=== PATIENT | female | born 1970 | race Caucasian/White ===

== ENCOUNTER 2021-06-26 11:59 | Outpatient (CLI) | payer OTHER, SELFPAY ==
--- NOTE | ~2021-06-26 | US_ITS ---
EXAMINATION: US venous doppler LE RT DATE: 06/26/2021 12:44 INDICATION: Right lower limb pain TECHNIQUE: Hutson scale images without and with compression and Doppler images of the right lower extre mity veins were obtained. COMPARISON: None FINDINGS: The right common femoral vein, profunda femoral vein, femoral vein, popliteal vein, peronea l trunk, posterior tibial veins, and greater saphenous vein are patent. IMPRESSION: 1. Patent right lower extremity veins. No evidence of deep venous thrombosis. Reviewed, dictated and finalized at location B.
== END 2021-06-26 12:00 | disposition home or self-care (01) ==
LOC: ANHIMG 12:05
PROVIDERS: PCP Family Medicine; Visit Provider Nurse Practitioner Family
DX: M79.89 Other specified soft tissue disorders (principal); M79.661 Pain in right lower leg
CPT/HCPCS: 93971

== ENCOUNTER 2023-05-09 11:20 | Outpatient (CLI) | payer BC, SELFPAY ==
--- NOTE | 2023-05-09 11:29 | ECG_ITS ---
Measurements Intervals [place] Rate: 78 P: 69 FL: 105 QRS: 0 QRSD: 79 T: 6 QT: 347 QTc: 397 Interpretive Statements SINUS RHYTHM WITH SHORT FL INTERVAL LOW QRS VOLTAGE IN PRECORDIAL LEADS BASELINE ARTIFACT- I, II, III, AVR, AVL, AVF, V1-V6 BORDERLINE ECG COMPARED TO ECG 04/24/2019 14:06:29 NO SIGNIFICANT CHANGES Electronically Signed On 05-09-2023 12:09:56 CDT by Randal Keane D.O.
== END 2023-05-09 11:21 | disposition home or self-care (01) ==
LOC: ANHSURGERY 11:24
PROVIDERS: PCP Family Medicine; Visit Provider Obstetrics & Gynecology
DX: N94.6 Dysmenorrhea, unspecified (principal); I10 Essential (primary) hypertension; Z01.818 Encounter for other preprocedural examination; R94.31 Abnormal electrocardiogram [ECG] [EKG]
CPT/HCPCS: 36415; 86850; 86900; 86901; 93005

== ENCOUNTER 2023-05-11 00:32 | Day surgery (SDC) | payer BC, SELFPAY ==
[2023-05-05 14:09] VITALS: BMI 40.4
--- NOTE | 2023-05-05 14:19 | PC.NURSE ---
Addendum entered by Latonya Carranza RN 05/05/23 14:31: WE WILL BE NEEDING A URINE SAMPLE THE MORNING OF SURGERY WHEN YOU ARRIVE, PLEASE REFRAIN FROM GOING TO THE RESTROOM BEFORE BEING BROUGHT TO YOUR PREOPERATIVE ROOM. Original Note: Report to the Outpatient Waiting Room, entrance under the green pavilion located off [facility], at time _1200_ on date _05/11/23__. Planned Procedure Time: __1400_. Time changes happen often and if your time is changed the preop area will call you the afternoon before. - You and your visitor will be asked to self-screen and do not enter if you have any COVID symptoms. - A mask is optional within the hospital at this time. Patients may have clear liquids (water, carbonated beverages, clear teas, apple juice) until 3 hours prior to surgery with a maximum of 20 ounces. - No food from midnight until time of surgery - Infants may have breast milk until 4 hours before surgery, formula 6 hours prior to surgery. - Children will be allowed to drink immediately following surgery. If applicable, please bring a bottle or sippy cup to assist with drinking. Juice, water, soda, and popsicles are readily available. For infants on formula, please bring formula the day of surgery. Pacifiers are allowed. Take the following medications with a SIP of water the morning of surgery: ___AMLODIPINE, FLUOXETINE__ ALBUTEROL INHALER IF NEEDED DO NOT STOP ANY OF YOUR OTHER PRESCRIPTION MEDICATIONS PRIOR TO SURGERY ?EXCEPT THE FOLLOWING Medications to discontinue per physician NONE Date to take last dose Please no make-up, nail nicaraguan, hairspray, perfume, deodorant, or body powder the day of surgery. No jewelry (including any body piercings) or valuables the day of surgery, leave them at home. Please take a shower or bath the night before, or the morning of, surgery with an antibacterial soap. Wear comfortable, loose fitting clothing. Children are encouraged to wear pajamas. - Jewelry must be removed prior to entering the operating room. Rings and piercings that are not removed may be cut off. - The hospital will not accept responsibility for valuables. - Please leave all valuables, including medications, at home the day of surgery. If you are going home after surgery, a licensed pick up driver must drive you home. - NO public transportation without another adult if you receive anesthesia. - We recommend that an adult stay with you for 24 hours following discharge. - We also recommend that you do not drive, make important decision, drink alcoholic beverages, or take any drugs that were not prescribed by your health care provider for at least 24 hours after your discharge time. For Pediatric surgeries, we recommend two adults accompany the child home. Follow any additional instructions given to you from your surgeon. If you or anyone in your household have experienced Covid symptoms in the past week, please notify your surgeon or the nurse liaison at the phone number below for possible testing. Telephone instructions given to _QUINTIN_and asked if any additional questions and then verbalized understanding. Patient advised to call surgeon office or pre surgery nurse liaison [phone] if any additional questions.
[2023-05-11] VITALS (9 sets, daily range): BP systolic 123–152; BP diastolic 65–87; PULSE 87–100; RESP 12–20; TEMP 36.2–37.1; O2SAT 92–100
--- NOTE | 2023-05-11 11:58 | PM.IMHP ---
H&P: HPI History of Present Illness Date/Time: 05/11/23 11:58 Chief Complaint: Heavy bleeding. Narrative: 53 y/o with heavy, painful bleeding episodes. She is known to have a fibroid uterus. Endometrial biopsy benign. She desires definitive management with hysterectomy. Review of Systems Review of Systems: All systems reviewed & are unremarkable except as noted in HPI and below PMFSH Past Medical History Medical History Asthma Essential hypertension Palpitations Wellness examination Social History Social History Smoking status: Never smoker Second hand tobacco smoke exposure: No Alcohol intake: current Drinks per week: 2 Alcohol use details: socially Substance use: never Substance use type: does not use Living arrangements: with family Occupation/Education: occupation Gender identity (if verbalized by the patient): Female Sexual Orientation (if Verbalized by the Patient): Straight or Heterosexual Meds Home Medications and Allergies Home Medications Medication Instructions Recorded Confirmed Type fluticasone propionate 50 2 spray intranasal DAILY PRN SINUS 06/09/20 05/05/23 History mcg/actuation nasal ALLERGY spray,suspension (Flonase Allergy Relief) albuterol sulfate 90 mcg/actuation See Rx Instructions .Route 06/18/22 05/05/23 Rx aerosol inhaler .COMPLEX #8.5 grams losartan 100 mg tablet 100 mg PO DAILY #90 tabs 11/22/22 05/05/23 Rx montelukast 10 mg tablet 10 mg PO QHS #90 tabs 01/20/23 05/05/23 Rx (Singulair) amlodipine 5 mg tablet 5 mg PO DAILY #90 tabs 04/04/23 05/05/23 Rx fluoxetine 20 mg capsule 20 mg PO DAILY #90 caps 04/04/23 05/05/23 Rx Allergies Allergy/AdvReac Type Severity Reaction Status Date / Time No Known Allergies Allergy Unverified 05/05/23 14:07 Exam Const: Orientation/consciousness: patient oriented x3 Other: Well-developed, well-nourished female in no acute distress. Neck: Thyroid: thyroid normal Lymphatic: no lymphadenopathy noted (in neck, axilla or inguinal nodes) Resp: Effort & Inspection: normal respiratory effort Auscultation: clear to auscultation bilaterally Cardio: Rate: regular rate Rhythm: regular rhythm Heart sounds: S1 normal heart sound present and S2 normal heart sound present GI: Other: ABD: Soft, nontender, nondistended. No guarding or rebound tenderness. No hepatosplenomegaly. : General: Yes no CVA tenderness Other: External genitalia: normal female hair distribution, without lesion. Urethral meatus: no lesion, non prolapsed. Bladder: no mass, nontender Vagina: well-estrogenized, without lesion or discharge. No cystocele or rectocele. Cervix: no lesion or discharge. Uterus: small, anteverted, freely mobile, nontender Adnexa: no mass or tenderness. Anus/perineum: no lesions, nontender Back/Spine/Pelvis: Back: no CVA tenderness Skin: General skin exam: normal color and no rashes or lesions noted Neuro: General: patient oriented x3 Extrem: Other: Extremities: nontender with no edema Psych: Mental Status: mental status grossly normal Affect: normal affect Assessment and Plan Assessment and plan (1) Menometrorrhagia: Code(s): N92.1 - Excessive and frequent menstruation with irregular cycle Status: Acute Assessment and Plan: A: Menometrorrhagia with pelvic pain. P: We have reviewed medical as well as surgical management options. She desires definitive management with hysterectomy. We plan total vaginal hysterectomy with bilateral salpingectomies, possible salpingo-oophorectomies. She understands risks of surgery to include risks of anesthesia, risks of pain, infection, bleeding, blood products, thromboembolic phenomena and damage to adjacent structures such as bowel, bladder, ureters, blood vessels and nerves. She understands all t
[2023-05-11] MEDS: ACETAMINOPHEN 500 MG TABLET 1000 MG PO (12:32)
--- NOTE | 2023-05-11 12:41 | WPDHPUPDATE1 ---
History and Physical Update Update Date/Time: 05/11/23 12:41 History and Physical has been reviewed, including an updated exam of the patient. There are NO changes in the patient's condition. Risks, benefits, and alternatives have been discussed and questions answered. Patient agrees to proceed with procedure.
[2023-05-11] MEDS: LACTATED RINGERS 1,000 ML 30 ML IV CONT ×2 (12:45→15:24)
[2023-05-11] MEDS: KETOROLAC 15 MG/ML VIAL (*BKC) IV PUSH (12:50)
--- NOTE | 2023-05-11 13:11 | P.PNAN_ITS ---
Anes - Initial Pre Proc Eval Procedure: Operation Date: 05/11/23 14:00 Proposed Procedures p Total Vaginal Hysterectomy with Bilateral Salpingo-oophorectomy - Juan Berrios MD Date/Time: 05/11/23 13:11 Surgeon: Juan Berrios MD Pre Op Diagnosis: Pelvic Pain, Dyspareunia,Dysmenorhea,Excess Bleed Patient Data Age: 53 Gender: F Height: 1.7 m Weight: 117 kg Allergies Allergy/AdvReac Type Severity Reaction Status Date / Time No Known Allergies Allergy Unverified 05/11/23 12:30 Home Medications Medication Instructions Recorded Confirmed Type fluticasone propionate 50 2 spray intranasal DAILY PRN SINUS 06/09/20 05/11/23 History mcg/actuation nasal ALLERGY spray,suspension (Flonase Allergy Relief) albuterol sulfate 90 mcg/actuation See Rx Instructions .Route 06/18/22 05/11/23 Rx aerosol inhaler .COMPLEX #8.5 grams losartan 100 mg tablet 100 mg PO DAILY #90 tabs 11/22/22 05/11/23 Rx montelukast 10 mg tablet 10 mg PO QHS #90 tabs 01/20/23 05/11/23 Rx (Singulair) amlodipine 5 mg tablet 5 mg PO DAILY #90 tabs 04/04/23 05/11/23 Rx fluoxetine 20 mg capsule 20 mg PO DAILY #90 caps 04/04/23 05/11/23 Rx Patient hx anesthesia problems: none Family hx anesthesia problems: none Results Review: All pre-operative results and documents have been reviewed as part of the pre- operative evaluation. [facility] Past Medical History Medical History Asthma Essential hypertension Palpitations Wellness examination Surgical History Surgical History (Updated 05/11/23 @ 13:11 by Keyur Munoz MD) H/O wrist surgery Social History Social History Smoking status: Never smoker Second hand tobacco smoke exposure: No Alcohol intake: current Drinks per week: 2 Alcohol use details: socially Substance use: never Substance use type: does not use Living arrangements: with family Occupation/Education: occupation Gender identity (if verbalized by the patient): Female Sexual Orientation (if Verbalized by the Patient): Straight or Heterosexual Anes - Eval Final PreProcedure Day of Procedure 05/11/23 13:11 Patient weight: morbidly obese Heart: regular rate and rhythm Lungs: clear to auscultation Airway: Mallampati scale class II Neurological: alert and oriented Last oral intake: >/= 8 hours ASA classification: III Emergent: no Anesthetic plan: proceed Anesthesia type and monitoring: general ETT and standard monitoring Results Review: All pre-operative results and documents have been reviewed as part of the pre- operative evaluation. Informed Consent: The patient's anesthetic plan and its attendant risks and benefits were discussed with the patient/family/POA. Questions were solicited and answers provided to the satisfaction of the patient/family/POA.
[2023-05-11] MEDS: ceFAZolin 2 GM/D5W 50 ML 2 GM/50 ML BAG IVPB (13:41)
--- NOTE | 2023-05-11 15:19 | P.OP_ITS ---
Procedure Note - Detailed Date of Procedure 05/11/23 Pre-op Diagnosis Menometrorrhagia, pelvic pain Post-op Diagnosis Same Procedure Performed Total vaginal hysterectomy Surgeon Juan Berrios MD Anesthesia General Findings Enlarged, fibroid uterus. Bilateral tubes and ovaries unremarkable. Description of Procedure The patient was taken to the operating room where she was prepared and draped in the usual sterile fashion in the dorsal lithotomy position. The bladder was drained with red rubber catheter. A weighted speculum was placed posteriorly. A Flakito retractor was used anteriorly. The cervix was grasped with a single- tooth tenaculum. Ten mL of sterile saline was infiltrated circumferentially around the cervix to aid in tissue plane dissection. The cervix was circumscribed using electrocautery. The peritoneal cavity was entered sharply posteriorly and a long weighted speculum was placed. The uterosacral and cardinal ligaments on both sides were then clamped, transected and suture ligated using 0 Vicryl. These were tagged for later identification. The bladder was dissected off the cervix and lower uterine segment and reflected away. The LigaSure device was then used to clamp, ligate and transect the broad ligaments bilaterally. The large size of the uterus began to obstruct dissection proximally. So once the uterine arteries were controlled, a #10 scalpel was used to core the uterus several times. Finally, the uteroovarian ligament / fallopian tube / round ligament complexes on both sides were able to be clamped, transected and suture ligated using 0 Vicryl. The specimen was passed off to be sent to pathology. The tubes and ovaries were normal- appearing. Both adnexa were difficult to reach, so salpingectomy was not attempted. The pedicles were inspected and found to be hemostatic. The vaginal cuff angles were then transfixed to the ipsilateral cardinal uterosacral ligaments for support. The vaginal cuff was reapproximated using 0 Vicryl in a running, locked fashion. Hemostasis was excellent. A Dial catheter was placed. Vaginal packing soaked in Premarin cream was placed. Sponge, lap, needle and instrument counts were correct. The patient was awakened and taken to the recovery room in stable condition. I was present and scrubbed for the entire procedure. Implants None Estimated Blood Loss 150 Drains Yes (dial) Packing Yes (vaginal) Pathology Yes (Uterus and cervix sent to pathology) Complications None Condition Stable Disposition PACU
--- NOTE | 2023-05-11 15:24 | PM.DS ---
DS: Admitting Diagnosis Discharge Date 05/11/23 Admitting Diagnosis Menometrorrhagia Pelvic pain DS: Discharge Diagnosis Discharge Diagnosis (1) Pelvic pain: Code(s): R10.2 - Pelvic and perineal pain Status: Acute (2) Menometrorrhagia: Code(s): N92.1 - Excessive and frequent menstruation with irregular cycle Status: Acute DS: Summary Hospital Course Hospital Course: She was admitted for scheduled surgery and underwent total vaginal hysterectomy. On postop day 1 her vaginal packing and dial catheter were removed. She tolerated a regular diet and pain was well-controlled. She was able to be discharged home. Time Spent with Patient Time attestation: Total time spent providing and/or coordinating discharge services: DS: Data Data Completed and Pending Pending studies at discharge: Pending at discharge 05/11/23 14:57 Surgical [PTH] Routine Discharge Plan Discharge Patient Disposition: Home, Self-Care Discharge Instructions: Nothing in the vagina for 6 weeks. Call or return if temperature above 100.4? F, increased abdominal pain, increased vaginal bleeding or any new problems. Stand Alone Forms: General Discharge Instructions Follow-up/Referrals: Juan Berrios MD [Physician] - 4 Weeks Discharge Medications: New hydrocodone-acetaminophen 5-325 mg tablet 1 - 2 tablet PO Q6H PRN (Reason: pain) Qty: 30 0RF Continued fluticasone propionate [Flonase Allergy Relief] 50 mcg/actuation spray,suspension 2 spray intranasal DAILY PRN (Reason: SINUS ALLERGY) Rx Instructions: administer into each nostril albuterol sulfate 90 mcg/actuation HFA aerosol inhaler See Rx Instructions .ROUTE .COMPLEX Qty: 8.5 4RF Dose Instruction: INHALE 1 PUFF BY MOUTH EVERY 4 HOURS NEEDED FOR SHORTNESS OF BREATH FOR WHEEZING Rx Instructions: INHALE 1-2 PUFFs BY MOUTH EVERY 4 HOURS NEEDED FOR SHORTNESS OF BREATH FOR WHEEZING losartan 100 mg tablet 100 mg PO DAILY Qty: 90 1RF montelukast [Singulair] 10 mg tablet 10 mg PO QHS Qty: 90 2RF fluoxetine 20 mg capsule 20 mg PO DAILY Qty: 90 1RF amlodipine 5 mg tablet 5 mg PO DAILY Qty: 90 1RF
[2023-05-11] MEDS: fentaNYL CITRATE INJ (*CRX) 100 MCG/2 ML VIAL 25 MCG IV PUSH ×4 (15:25→16:03)
[2023-05-11] MEDS: KETOROLAC 30 MG/ML VIAL (*BKC) IV PUSH ×2 (17:00→23:10)
[2023-05-11] MEDS: SIMETHICONE 80 MG TAB.CHEW PO (17:00)
[2023-05-11] MEDS: LOSARTAN POTASSIUM 100 MG TABLET PO (20:00)
[2023-05-11] MEDS: HYDROcodone/acetaminophen (*CRX) 10-325 MG TABLET 1 TAB PO ×2 (20:00→23:10)
[2023-05-11] MEDS: ENOXAPARIN 40 MG/0.4 ML SYRINGE SUB-Q (20:00)
[2023-05-11] MEDS: MONTELUKAST SODIUM 10 MG TABLET PO (20:00)
[2023-05-11] MEDS: DOCUSATE SODIUM 100 MG CAPSULE PO (20:00)
[2023-05-12] MEDS: HYDROcodone/acetaminophen (*CRX) 10-325 MG TABLET 1 TAB PO (04:30)
[2023-05-12 04:40] VITALS: BP 130/83; PULSE 105; RESP 20; TEMP 36.6; O2SAT 99
[2023-05-12 05:15] LABS: Basophils Absolute Auto 0.1 K/mm3 (0.0-0.1); Basophils Percent Auto 0.5 % (0.2-1.2); Hematocrit 31.3 % (37.0-47.0); Hemoglobin 9.1 g/dL (12.0-15.0); Immature Granulocyte Absolute 0.05 K/mm3 (0.00-0.031); Immature Granulocyte Percent A 0.5 % (0-0.5); Lymphocytes Absolute Auto 0.89 K/mm3 (0.9-3.2); Lymphocytes Percent Auto 8.7 % (18.3-44.2); Mean Corpuscular HGB Conc 29.1 g/dl (32-36); Mean Corpuscular Hemoglobin 21.6 pg (26-34); Mean Corpuscular Volume 74.3 fl (80-100); Mean Platelet Volume 9.3 fl (7.4-10.4); Monocytes Absolute Auto 0.6 K/mm3 (0.1-0.6); Monocytes Percent Auto 5.6 % (2.6-8.5); Neutrophils Absolute Auto 8.7 K/mm3 (1.3-6.7); Neutrophils Percent Auto 84.7 % (45.5-73.1); Platelet Count Result 381 k/mm3 (150-375); Red Blood Count 4.21 M/mm3 (4.2-5.4); Red Cell Distribution Width 16.4 % (11.5-14.5); White Blood Count 10.2 K/mm3 (4.5-10.0)
[2023-05-12 05:40] LABS: Anisocytosis 1+ (NORMAL); Hypochromasia 1+ (NORMAL); Large Platelets Present; Platelet Estimate Adequate (Adequate); Schistocytes None Seen (NORMAL)
--- NOTE | 2023-05-12 07:25 | PM.GYNPNOP ---
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 P: Home to f/u 4 weeks in office. (2) Menometrorrhagia: Code(s): N92.1 - Excessive and frequent menstruation with irregular cycle Status: Acute Postoperative Procedures: Procedures Operation Date: 05/11/23 14:00 Actual Procedure Side Surgeon p Total Vaginal Hysterectomy Not Applicable Juan Berrios MD Postoperative day: 1 Time Spent With Patient Time with patient: less than 15 minutes AUTOMAT WATCH[employer]- PN:Subj Post-Op Subjective Date/time seen: 05/12/23 07:25 Interval history: Pain OK. Tolerating diet. Voiding. Would like to go home. Exam Narrative: AVSS I/O OK ABD soft, nontender. EXT nontender AUTOMAT WATCHER - PN: Obj Data Vital Signs Vital Signs: Vital Signs - 24 hr 05/11/23 12:13 05/11/23 15:24 05/11/23 15:35 Temperature 36.2 C L 37.1 C Pulse Rate 100 92 100 Respiratory Rate 20 12 12 Blood Pressure 149/82 H 123/65 138/80 Pulse Oximetry 100 100 100 Oxygen Delivery Room Air Simple Face Mask Simple Face Mask Oxygen Flow Rate 8 8 05/11/23 15:50 05/11/23 16:05 05/11/23 16:20 Temperature Pulse Rate 100 97 99 Respiratory Rate 20 14 16 Blood Pressure 149/76 H 152/65 H 144/80 H Pulse Oximetry 100 94 92 Oxygen Delivery Simple Face Mask Room Air Room Air Oxygen Flow Rate 8 05/11/23 16:45 05/11/23 16:45 05/11/23 20:00 Temperature 36.2 C L 36.7 C Pulse Rate 87 99 98 Respiratory Rate 16 16 18 Blood Pressure 142/82 H 150/87 H Pulse Oximetry 94 92 100 Oxygen Delivery Room Air Oxygen Flow Rate 05/11/23 20:00 05/11/23 23:10 05/11/23 23:10 Temperature 36.6 C Pulse Rate 95 Respiratory Rate 20 Blood Pressure 142/73 H Pulse Oximetry 98 Oxygen Delivery Room Air Room Air Oxygen Flow Rate 05/12/23 04:40 05/12/23 04:40 Temperature 36.6 C Pulse Rate 105 H Respiratory Rate 20 Blood Pressure 130/83 Pulse Oximetry 99 Oxygen Delivery Room Air Oxygen Flow Rate Intake/Output Intake/Output: Intake & Output 05/09/23 05/10/23 05/11/23 05/12/23 23:59 23:59 23:59 23:59 Intake Total 300 1120 Output Total 180 1550 Balance 120 -430 Meds/Results Medications: Active Medications Generic Name Dose Route Start Last Admin Trade Name Freq PRN Reason Stop Dose Admin Hydrocodone Bitart/Acetaminophen 1 tab 05/11/23 16:32 Hydrocodone/Acetaminophen (*Crx) 5-325 Mg Tablet PO Q3H PRN Pain Rated 5 or Less Hydrocodone Bitart/Acetaminophen 1 tab 05/11/23 16:32 05/12/23 04:30 Hydrocodone/Acetaminophen (*Crx) 10-325 Mg Tablet PO 1 tab Q3H PRN Administration Pain Rated 6 or Greater Albuterol 1 puff 05/11/23 20:00 Albuterol Sulfate (*Sp) Aerosol 1 Puff INHALATION Q4H PRN SHORTNESS OF BREATH Amlodipine Besylate 5 mg 05/12/23 09:00 Amlodipine Besylate 5 Mg Tablet PO DAILY [facility] Docusate Sodium 100 mg 05/11/23 17:00 05/11/23 20:00 Docusate Sodium 100 Mg Capsule PO 100 mg BID DRISS Administration Enoxaparin Sodium 40 mg 05/11/23 21:00 05/11/23 20:00 Enoxaparin 40 Mg/0.4 Ml Syringe SUB-Q 40 mg DAILY DRISS Administration Fluoxetine HCl 20 mg 05/12/23 09:00 Fluoxetine Hcl 20 Mg Capsule PO DAILY DRISS Fluticasone Propionate 2 spray 05/11/23 16:32 Fluticasone Propionate 0.05% Na Spr 16 Gm Btl (*Bkc) NASAL DAILY PRN SINUS ALLERGY Dextrose/Sodium Chloride 1,000 mls @ 125 mls/hr 05/11/23 16:32 Dextrose 5% Sodium Chloride 0.45% IV CONT .Q8H DRISS Ibuprofen 600 mg 05/11/23 16:32 Ibuprofen 600 Mg Tablet PO Q6H PRN Cramping Ketorolac Tromethamine 30 mg 05/11/23 16:32 05/11/23 23:10 Ketorolac 30 Mg/Ml Vial (*Bkc) IV PUSH 05/16/23 16:31 30 mg Q6H PRN Administration Pain Rated 4-6 Losartan Potassium 100
[2023-05-12 08:00] VITALS: BP 130/68; PULSE 88; RESP 16; TEMP 37; O2SAT 98
[2023-05-12] MEDS: FLUoxetine HCL 20 MG CAPSULE PO (08:19)
[2023-05-12] MEDS: DOCUSATE SODIUM 100 MG CAPSULE PO (08:19)
[2023-05-12] MEDS: amLODIPine BESYLATE 5 MG TABLET PO (08:20)
[2023-05-12] MEDS: HYDROcodone/acetaminophen (*CRX) 5-325 MG TABLET 1 TAB PO (08:20)
[2023-05-12] MEDS: IBUPROFEN 600 MG TABLET PO (08:20)
[2023-05-12 08:30] VITALS: PULSE 88; RESP 16; O2SAT 98
--- NOTE | 2023-05-12 09:00 | WPDANESPN ---
Anes - Prog Note Post-Op Date/Time: 05/12/23 09:00 Cardiovascular status: normal Respiratory status: normal Airway patency: baseline Mental status: baseline Post-Op hydration status: normal Vital Signs: Last Vital Signs Temp 36.6 C 05/12/23 04:40 Pulse 105 H 05/12/23 04:40 Resp 20 05/12/23 04:40 BP 130/83 05/12/23 04:40 Pulse Ox 99 05/12/23 04:40 O2 Del Method Room Air 05/12/23 04:40 O2 Flow Rate 8 05/11/23 15:50 Pain Score (VAS): 10/29 I/O: Intake & Output 05/11/23 05/12/23 05/12/23 23:59 07:59 15:59 Intake Total 300 1120 Output Total 30 1550 Balance 270 -430 Laboratory Tests 05/12/23 04:32 05/12/23 04:32 WBC 10.2 H RBC 4.21 Hgb 9.1 L Hct 31.3 L MCV 74.3 L MCH 21.6 L MCHC 29.1 L RDW 16.4 H Plt Count 381 H MPV 9.3 Immature Gran % (Auto) 0.5 Neut % (Auto) 84.7 H Lymph % (Auto) 8.7 L [place] % (Auto) 5.6 Eos % (Auto) 0.0 Baso % (Auto) 0.5 Lymph # (Auto) 0.89 L [place] # (Auto) 0.6 Eos # (Auto) 0.0 Baso # (Auto) 0.1 Abs Immat Gran (auto) 0.05 H Absolute Neuts (auto) 8.7 H Absolute Nucleated RBC 0.0 Nucleated RBC % 0.0 Platelet Estimate Adequate Large Platelets Present Hypochromasia 1+ Anisocytosis 1+ Schistocytes None seen Post-procedural complaints: none Patient Feedback: Patient satisfied with anesthetic care.
== END 2023-05-12 11:05 | disposition home or self-care (01) ==
LOC: ANHSURGERY 15:25 → ANHOB2 19:02
PROVIDERS: PCP Family Medicine; Visit Provider Obstetrics & Gynecology
PROC: (CPT 58260; principal; 2023-05-11 14:00)
DX: N92.1 Excessive and frequent menstruation with irregular cycle (principal); N72 Inflammatory disease of cervix uteri; N88.8 Other specified noninflammatory disorders of cervix uteri; N80.03 Adenomyosis of the uterus; D25.1 Intramural leiomyoma of uterus; R10.2 Pelvic and perineal pain; N94.6 Dysmenorrhea, unspecified; J45.909 Unspecified asthma, uncomplicated; I10 Essential (primary) hypertension; E66.01 Morbid (severe) obesity due to excess calories; Z68.41 Body mass index [BMI] 40.0-44.9, adult; Z79.51 Long term (current) use of inhaled steroids
CPT/HCPCS: 58262; 36415; 85025; 88307; 99199; A9270; J0690; J1100; J1170; J1650; J1885; J2250; J2405; J2704; J3010; J7030; J7120